=== PATIENT | female | born 1990 | race Caucasian/White ===

== ENCOUNTER 2018-02-27 17:04 | Emergency (ER) | payer MEDICARE, MEDICAID ==
--- NOTE | 2018-02-27 18:13 | EDM.PDOCBH ---
ED HPI GENERAL MEDICAL PROBLEM - General Chief Complaint: Drug or Alcohol Abuse Stated Complaint: EVAL Time Seen by Provider: 02/27/18 18:07 Source of Information: Reports: Patient, Old Records, RN History Limitations: Reports: No Limitations - History of Present Illness INITIAL COMMENTS - FREE TEXT/NARRATIVE: 28 yo female here with her couselor after being AWOL for about a week. Likely was off her psych meds. Street drug use is suspected. Needs medical clearance before admission to [place] for detox. Is more paranoid than usual. Is believed to have run off with a boyfriend. Onset: Unknown/Unsure Duration: Constant Location: Reports: Head (change in behavior) Quality: Reports: Other (no pain) Severity: Mild Improves with: Reports: Other (taking regular meds and avoiding street drugs) Worsens with: Reports: Other (noncompliance) Context: Reports: Other (Hx of mental health problems) Associated Symptoms: Reports: No Other Symptoms Treatments COGNOS ANALYST: Reports: Other (see below) (none) - Related Data Allergies Allergy/AdvReac Type Severity Reaction Status Date / Time Penicillins Allergy Hives Verified 02/27/18 17:40 Home Meds: Home Meds Cetirizine [ZyrTEC] 1 tab PO DAILY 02/27/18 [History] Fluticasone Propionate [Flonase Allergy Relief] 2 sprays ELBA DAILY 02/27/18 [ History] Gabapentin [Neurontin] 1 tab PO TID 02/27/18 [History] LORazepam 1 mg PO BID PRN 02/27/18 [History] Sertraline [Zoloft] 1 tab PO DAILY 02/27/18 [History] Sertraline [Zoloft] 1 tab PO DAILY 02/27/18 [History] Past Medical History 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: Neurological History: Reports: Brain Injury Psychiatric History: Reports: ADD, Addiction, Anxiety, Depression, PTSD - Infectious Disease History Infectious Disease History: Reports: Chicken Pox - Past Surgical History Female Surgical History: Reports: D&C Social & Family History - Tobacco Use Smoking Status *Q: Current Every Day Smoker Years of Tobacco use: 13 Packs/Tins Daily: 0.5 - Caffeine Use Caffeine Use: Reports: Soda - Alcohol Use Date of Last Drink: 02/26/18 Time of Last Drink: 20:00 - Recreational Drug Use Recreational Drug Use: Yes Recreational Drug Type: Reports: Marijuana/Hashish, Methamphetamine ED ROS GENERAL - Review of Systems Review Of Systems: See Below Constitutional: Reports: No Symptoms HEENT: Reports: No Symptoms Respiratory: Reports: No Symptoms Cardiovascular: Reports: No Symptoms GI/Abdominal: Reports: No Symptoms : Reports: No Symptoms Musculoskeletal: Reports: No Symptoms Skin: Reports: No Symptoms Neurological: Reports: No Symptoms Psychiatric: Reports: Other (paranoia) ED EXAM, BEHAVIORAL HEALTH - Physical Exam Exam: See Below Exam Limited By: No Limitations General Appearance: Alert, WD/WN, No Apparent Distress Eye Exam: Bilateral Eye: Normal Inspection Ears: Normal External Exam, Normal Canal, Hearing Grossly Normal, Normal TMs Nose: Normal Inspection, Normal Mucosa, No Blood Throat/Mouth: Normal Inspection, Normal Lips, Normal Oropharynx, Normal Voice, No Airway Compromise Head: Atraumatic, Normocephalic Neck: Normal Inspection, Supple, Non-Tender Respiratory/Chest: No Respiratory Distress, Lungs Clear, Normal Breath Sounds, No Accessory Muscle Use Cardiovascular: Regular Rate, Rhythm, No Edema GI/Abdominal: Normal Bowel Sounds, Soft, Non-Tender, No Distention Back Exam: Normal Inspection. No: CVA Tenderness (R), CVA Tenderness (L) Extremities: Normal Inspection, Normal Range of Motion, Non-Tender, No Pedal Edema Neurological: Alert, Normal Mood/Affect, CN II-XII Intact, Normal Cognition, No Motor/Sensory Deficits, Oriented x 3 Psychiatric: Alert, Normal Affect, Normal Cognition, Normal Mood, Oriented. No : Uncooperative Skin Exam: Warm, Dry, Intact, Normal color, No rash COURSE, BEHAVIORAL HEALTH COMP - Course Vital Signs: Last Vital Signs Temp 36.9 C 02/27/18 17:58 Pulse 109 H 02/27/18 17:58 Resp 17 02/27/18 17:58 BP 127/104 H 02/27/18 17:58 Pulse Ox 99 02/27/18 17:58 Orders, Labs, Meds: Active Orders 24 hr Category Date Time Status DRUG SCREEN, URINE [URCHEM] Stat Lab 02/27/18 17:52 Ordered UA W/MICROSCOPIC [URIN] Urgent Lab 02/27/18 17:59 Ordered Laboratory Tests 02/27/18 02/27/18 Range/Units 17:52 17:59 Urine Color Yellow Urine Appearance Clear Urine pH 7.0 (4.5-8.0) Ur Specific [place] 1.005 L (1.008-1.030) Urine Protein Negative (NEGATIVE) mg/dL Urine Glucose (UA) Normal (NEGATIVE) mg/dL Urine Ketones Negative (NEGATIVE) mg/dL Urine Occult Blood Negative (NEGATIVE) Urine Nitrite Negative (NEGATIVE) Urine Bilirubin Negative (NEGATIVE) Urine Urobilinogen Normal (NORMAL) mg/dL Ur Leukocyte Esterase Negative (NEGATIVE) Urine RBC 0-5 (0-5) Urine WBC 0-5 (0-5) Ur Epithelial Cells Few Amorphous Sediment Not seen Urine Bacteria Not seen Urine Mucus Not seen Urine Opiates Screen Negative (NEGATIVE) Ur Oxycodone Screen Negative (NEGATIVE) Urine Methadone Screen Negative (NEGATIVE) Ur Propoxyphene Screen Negative (NEGATIVE) Ur Barbiturates Screen Negative (NEGATIVE) Ur Tricyclics Screen Negative (NEGATIVE) Ur Phencyclidine Scrn Negative (NEGATIVE) Ur Amphetamine Screen Presumptive positive H (NEGATIVE) U Methamphetamines Scrn Presumptive positive H (NEGATIVE) Urine MDMA Screen Negative (NEGATIVE) U Benzodiazepines Scrn Presumptive positive H (NEGATIVE) U Cocaine Metab Screen Negative (NEGATIVE) U Marijuana (THC) Screen Presumptive positive H (NEGATIVE) Departure - Departure Time of Disposition: 18:34 Disposition: DC/Tfer to Other 70 Condition: Fair Clinical Impression: Illicit drug use, Mental health disorder - Discharge Information *PRESCRIPTION DRUG MONITORING PROGRAM REVIEWED*: Not Applicable *COPY OF PRESCRIPTION DRUG MONITORING REPORT IN PATIENT ELIZA: Not Applicable Referrals: PCP,None [Primary Care Provider] - Forms: ED Department Discharge
== END 2018-02-27 18:42 | disposition other institution (70) ==
LOC: JP.ED 17:04 → MERGE 17:04 → JP.ED 18:42
DX: F19.90 Other psychoactive substance use, unspecified, uncomplicated (principal); F99 Mental disorder, not otherwise specified; F17.210 Nicotine dependence, cigarettes, uncomplicated; Z88.0 Allergy status to penicillin
CPT/HCPCS: 80305-QW; 81001; 99285